=== PATIENT | male | born 1960 ===

== ENCOUNTER 2018-03-04 06:02 | Day surgery (SDC) | payer BC ==
--- NOTE | 2018-02-16 07:31 | HP ---
CC: Dr. Garcia* HISTORY AND PHYSICAL: DATE OF PLANNED ADMISSION AND SURGERY: 03/04/18 HISTORY OF PRESENT ILLNESS: Mr. Tracy is a 58-year-old white male, who is admitted with recurrent episodes of balanitis, ventral penile cyst, for circumcision and excision of penile cyst. I have been following Mr. rTacy for the last 10 years because of bladder outlet obstruction and PSA elevation. He has been maintained on tamsulosin 0.8 mg daily with good response and good bladder emptying. His PSA has been stable between 4 and 5. He has had recurrent episodes of balanitis and has been using antifungal cream as needed. More recently, he developed a cyst on the ventral aspect of the penis at the level of the frenulum. This has become bothersome and has had more frequent episodes of balanitis. Because of the above history, the above operation was advised and accepted. PAST MEDICAL HISTORY AND SYSTEM REVIEW: He is healthy. He has a history of anxiety and depression. He denies any cardiac or pulmonary diseases or symptoms. MEDICATIONS: He is maintained on the following medications: 1. Xanax 0.25 mg 3 times per day as needed. 2. Abilify 5 mg at bedtime. 3. Wellbutrin 150 mg twice a day. 4. Cymbalta 60 mg daily. 5. He takes omeprazole 40 mg daily for GERD. 6. He has been on aspirin, which was discontinued preoperatively. ALLERGIES: He denies any allergies to medications. FAMILY HISTORY: Negative for prostate carcinoma. PHYSICAL EXAMINATION GENERAL: Pleasant and healthy-looking white male. VITAL SIGNS: Blood pressure 120/80, pulse of 90. LUNGS: Clear. HEART: Regular and rhythmic. No murmurs. ABDOMEN: Soft without any masses or tenderness. GENITALIA: He is not circumcised. He has no phimosis. There are some balanitis changes. There is a 1-cm cyst located on the ventral aspect of the penis at the level of the distal frenulum. No suspicious penile lesions noted. Testes feel normal. No inguinal hernias. RECTAL: Shows a moderately enlarged but nonsuspicious prostate. IMPRESSION: 1. Recurrent episodes of balanitis in a nondiabetic and with a 1-cm ventral penile cyst. 2. Bladder outlet obstruction with good response to tamsulosin. 3. Anxiety and depression, on treatment. PLAN: Plan is for circumcision and excision of the penile cyst. I discussed the indication and procedure. Some of the potential complications including infection and hematoma were discussed. All of his questions were answered. [id number]/[facility] #: [id number] MADONNA
[~2018-03-04 06:02] MED LIST: Buffered Lidocaine 0.9% SYRIN* 5 ML/SYR SYRINGE INTRADERM ONE
[2018-03-04] MEDS ORDERED: Lidocaine 2% PF * 5 ML VIAL ONE (06:32)
[2018-03-04] MEDS ORDERED: Propofol* 10 MG/ML 20 ML BTL IV PUSH ONE (06:32)
[2018-03-04] MEDS ORDERED: EPINEPHrine SYR 0.1 MG/ML* (1:10,000) SYRINGE ONE (06:32)
[2018-03-04] MEDS ORDERED: Rocuronium* 10 MG/ML VIAL ONE (06:33)
[2018-03-04] MEDS ORDERED: fentaNYL* 50 MCG/ML 2 ML VIAL (100 MCG VIAL) ONE ×2 (06:33→08:32)
[2018-03-04] MEDS ORDERED: Midazolam* 1 MG/ML 2 ML VIAL (2 MG) ONE ×3 (06:33→08:31)
[2018-03-04] MEDS ORDERED: Sterile Water for Inj* 10 ML ONE (06:36)
[2018-03-04] MEDS ORDERED: Lidocaine 2% JELLY* 6 ML JELLY TOPICAL ONE (07:12)
[2018-03-04] MEDS ORDERED: Bupivacaine 0.5% PF 10 ML VIAL INJ ONE (07:12)
[2018-03-04] MEDS ORDERED: Lidocaine 1% INJ* 10 MG/ML 30 ML SDV ONE (07:12)
[2018-03-04] MEDS ORDERED: Bacitracin OINTMENT* 0.5% 0.5 oz TUBE ONE (07:13)
[2018-03-04] MEDS ORDERED: Lidocaine 2% JELLY* 20 ML (for OR use) ONE (07:19)
[2018-03-04] MEDS ORDERED: Succinylcholine* 20 MG/ML 10 ML VIAL ONE (07:42)
[2018-03-04] MEDS ORDERED: Sugammadex * 200 MG/2 ML VIAL IV PUSH ONE (08:00)
[2018-03-04] MEDS ORDERED: Acetaminophen TAB* 325 MG PO PRN (08:42)
[2018-03-04] MEDS ORDERED: Metoclopramide IV* 5 MG/ML 2 ML VIAL IV PRN (08:42)
[2018-03-04] MEDS ORDERED: fentaNYL* 50 MCG/ML 2 ML VIAL (100 MCG VIAL) IV PRN (08:42)
[2018-03-04] MEDS ORDERED: Naloxone* 0.4 MG/ML 1 ML VIAL IV PRN (08:42)
[2018-03-04] MEDS ORDERED: Ondansetron INJ* 2 MG/ML VIAL ONE (08:59)
[2018-03-04 09:51] VITALS: BP 151/97
--- NOTE | 2018-03-04 17:12 | OP ---
CC: Dr. Garcia OPERATIVE REPORT: DATE OF OPERATION: 03/04/18 DATE OF : 56 SURGEON: Dr. Allen. ANESTHESIOLOGIST: Dr. Joyner. ANESTHESIA: Penile block, IV sedation with MAC. PRE-OP DIAGNOSES: 1. Recurrent balanitis. 2. Ventral penile cyst. POST-OP DIAGNOSES: 1. Recurrent balanitis. 2. Ventral penile cyst. OPERATIVE PROCEDURE: Circumcision and excision of ventral penile cyst (1 cm) INDICATION FOR PROCEDURE: Mr. Tracy is a 58-year-old white male who has had recurrent episodes of balanitis. He does not have phimosis and he is not diabetic. He has been treated with antifungal creams, but the balanitis kept recurring. He also developed a 1 cm cyst on the ventral aspect of the penis at the level of the frenulum. Because of the above history and findings and recurrent episodes of infections, a circumcision was advised and accepted. PATHOLOGY: Exam under anesthesia again shows redundant foreskin. There was no phimosis and no suspicious penile lesions noted. Ventrally, there was a 1 cm cyst arising at the distal end of the frenulum, just proximal to the urethral meatus. There was a relatively tight frenulum causing ventral tethering of the penis. The penile cyst had just fluid in it. DESCRIPTION OF PROCEDURE: With the patient in the supine position and under intravenous sedation and with anesthesia monitoring, the patient was prepped and draped for circumcision. A total of 12 cc of 0.5% Marcaine without epinephrine were used for penile block achieving a very good anesthesia. An incision was carried over the skin aspect of the foreskin at the level of the dhillon. The foreskin was then retracted. An incision was then carried on the mucous membrane aspect of the foreskin about 1 cm proximal and parallel to the dhillon. Ventrally, the frenulum was released and the penile cyst was excised. The bleeders were electrocoagulated and controlled. The foreskin was then excised using cautery. Additional hemostasis was achieved with cautery. At the site of the excision of the penile cyst and the division of the frenulum , the mucosa was approximated achieving good hemostasis. The stump of the foreskin was then approximated using interrupted sutures of 4- 0 chromic. The final result looked very satisfactory. There was very good hemostasis. Antibiotic ointment was applied over the incision. A soft dressing was applied. The patient tolerated the procedure well and left the operating room in good condition. The blood loss was negligible. The specimen was foreskin including the penile cyst. All the counts were correct. [id number] #: [id number] MTDD
== END 2018-03-04 10:12 | disposition home or self-care (01) ==
LOC: OR 06:02
PROVIDERS: ATTEND Urology
DX: N48.1 Balanitis (principal); N48.89 Other specified disorders of penis; F41.8 Other specified anxiety disorders; N32.0 Bladder-neck obstruction
CPT/HCPCS: 88304; A9270-GY; J0171; J0330; J2250; J2405; J2704; J3010